=== PATIENT | male | born 1970 | race Caucasian/White ===

== ENCOUNTER → 2023-01-12 | Outpatient (CLI) | payer OTHER | END | disposition home or self-care (01) | LOC: RAH 10:38 | PROVIDERS: ATTEND Internal Medicine | DX: N62 Hypertrophy of breast (principal) | CPT/HCPCS: 77066 ==

== ENCOUNTER 2023-07-10 02:01 | Emergency (ER) | payer OTHER ==
[~2023-07-10] VITALS: Ht 182.9 cm; Wt 123.1 kg
[~2023-07-10 02:01] MED LIST: AEC81 PO; APIX5TAB PO; DRON400T7 PO; LISI10TA24 PO; PIND5 PO
[2023-07-10 02:29] LABS: BASOPHILS # (AUTO) 0.07 K/uL (0.00-0.20); BASOPHILS % (AUTO) 0.9 % (0.0-5.0); EOSINOPHILS # (AUTO) 0.22 K/uL (0.00-0.70); HEMATOCRIT 44.1 % (42-54); IMMATURE GRANULOCYTE ABSOLUTE 0.01 K/uL (0-1); LYMPHOCYTES % (AUTO) 27.2 % (21.0-51.0); MEAN CORPUSCULAR HEMOGLOBIN 29.4 pg (27.0-33.0); MEAN CORPUSCULAR HGB CONC 34.2 g/dL (32.0-36.0); MONOCYTES # (AUTO) 0.8 K/uL (0.1-1.0); MONOCYTES % (AUTO) 10.4 % (3.0-13.0); NEUTROPHILS # (AUTO) 4.3 K/uL (1.8-7.7); NEUTROPHILS % (AUTO) 58.4 % (40.0-77.0); PLATELET COUNT (AUTO) 197 K/uL (130-400); RED BLOOD CELL COUNT(AUTO) 5.13 MIL/uL (4.50-6.20); RED CELL DISTRIBUTION WIDTH 12.2 % (11.0-15.5); WHITE BLOOD COUNT (AUTO) 7.4 K/uL (4.8-10.8)
[2023-07-10 02:52] LABS: INR < 0.93 (0.85-1.15); PROTHROMBIN TIME 10.8 SEC (9.6-11.6)
[2023-07-10 02:54] LABS: CREATININE 1.3 mg/dL (0.5-1.5); POTASSIUM 3.3 mmol/L (3.5-5.1)
[2023-07-10 02:59] LABS: ALBUMIN 3.7 g/dL (3.5-5.0); BILIRUBIN,TOTAL 0.9 mg/dL (0.2-1.0); TOTAL PROTEIN, SERUM 6.9 g/dL (6.0-8.3)
[2023-07-10] MEDS ORDERED: HYDRALAZINE 20MG/ML VIAL IV ONE (03:00)
[2023-07-10] MEDS ORDERED: CLON0.1T PO (03:41)
[2023-07-10] MEDS ORDERED: CLONIDINE HCL 0.1 MG TABLET ONE (03:49)
[2023-07-10] MEDS ORDERED: CLONIDINE HCL 0.1 MG TABLET PO ONE (04:00)
[2023-07-10] MEDS ORDERED: ONDANSETRON 4MG INJ IVP ONE (05:00)
[2023-07-10 05:33] VITALS: BP 144/99; PULSE 70; RESP 16; O2SAT 97
== END 2023-07-10 05:42 | disposition home or self-care (01) ==
LOC: EDH 02:01
DX: I10 Essential (primary) hypertension (principal); I48.91 Unspecified atrial fibrillation; Z79.01 Long term (current) use of anticoagulants; Z79.82 Long term (current) use of aspirin; Z79.899 Other long term (current) drug therapy
CPT/HCPCS: 99285; 96374; 71045; 96375; 84484; 80053; 85025; 85610; 85730; 36415; 93005; J2405

== ENCOUNTER 2023-10-15 05:38 | Observation (INO) | payer OTHER ==
[2023-10-12 08:19] VITALS: BP 140/91; PULSE 57; RESP 16
[2023-10-12 08:45] LABS: BASOPHILS # (AUTO) 0.05 K/uL (0.00-0.20); BASOPHILS % (AUTO) 0.8 % (0.0-5.0); EOSINOPHILS # (AUTO) 0.15 K/uL (0.00-0.70); EOSINOPHILS % (AUTO) 2.4 % (0.0-8.0); IMMATURE GRANULOCYTE ABSOLUTE 0.01 K/uL (0-1); LYMPHOCYTES # (AUTO) 1.7 K/uL (1.0-4.8); LYMPHOCYTES % (AUTO) 28.1 % (21.0-51.0); MEAN CORPUSCULAR HEMOGLOBIN 30.1 pg (27.0-33.0); MEAN CORPUSCULAR HGB CONC 34.7 g/dL (32.0-36.0); MEAN CORPUSCULAR VOLUME 86.7 fL (79-99); MONOCYTES # (AUTO) 0.7 K/uL (0.1-1.0); MONOCYTES % (AUTO) 11.5 % (3.0-13.0); NEUTROPHILS # (AUTO) 3.5 K/uL (1.8-7.7); PLATELET COUNT (AUTO) 220 K/uL (130-400); RED BLOOD CELL COUNT(AUTO) 5.42 MIL/uL (4.50-6.20); WHITE BLOOD COUNT (AUTO) 6.2 K/uL (4.8-10.8)
[2023-10-12 08:57] LABS: INR 0.99 (0.85-1.15); PROTHROMBIN TIME 11.5 SEC (9.6-11.6)
[2023-10-12 08:58] LABS: PARTIAL THROMBOPLASTIN TIME 32.9 SEC (26.3-35.5)
[2023-10-12 09:00] LABS: CREATININE 1.3 mg/dL (0.5-1.5); POTASSIUM 3.4 mmol/L (3.5-5.1)
[~2023-10-15] VITALS: Ht 180.3 cm; Wt 124.7 kg
[2023-10-15] VITALS (23 sets, daily range): BP systolic 82–124; BP diastolic 57–77; PULSE 61–78; RESP 13–20; O2SAT 95–100
[~2023-10-15 05:38] MED LIST changes: -AEC81 PO; +AMLO-258 PO; -DRON400T7 PO; +HYDR-3421 PO; -LISI10TA24 PO; +METO25TA6 PO; -PIND5 PO; +PROP225T3 PO
[2023-10-15] MEDS ORDERED: 0.9%NACL 1000ML 1,000 ML IV ONE ×2 (06:10→17:00)
[2023-10-15] MEDS ORDERED: FENTANYL CITRATE PF 50 MCG/1 ML 5ML AMP IV ONE (07:05)
[2023-10-15] MEDS ORDERED: MIDAZOLAM HCL 1 MG/ML 2ML VIAL ONE ×2 (07:05→07:09)
[2023-10-15] MEDS ORDERED: MEPERIDINE-PF 25 MG/ML SYG ONE (07:09)
[2023-10-15] MEDS ORDERED: LIDOCAINE HCL 400MG/20ML VIAL ONE ×2 (07:09→07:42)
[2023-10-15] MEDS ORDERED: HEPARIN 10,000 UNIT/10ML (1,000 UNIT/ML) VIAL ONE ×2 (07:09→10:07)
[2023-10-15] MEDS ORDERED: ONDANSETRON 4MG INJ ONE ×2 (07:14→14:04)
[2023-10-15] MEDS ORDERED: LIDOCAINE PF 100MG/5ML (2%) SYRINGE 5ML ONE ×2 (07:14→08:25)
[2023-10-15] MEDS ORDERED: PROPOFOL 10 MG/ML 20ML VIAL IV ONE (07:15)
[2023-10-15] MEDS ORDERED: ROCURONIUM 10MG/1ML SYR 10 MG/ML ML ONE (07:15)
[2023-10-15] MEDS ORDERED: ATROPINE 1MG SYG IVP ONE (07:35)
[2023-10-15] MEDS ORDERED: EPINEPHRINE PF 1MG (1:1,000) 1 MG/ML AMP ONE (07:35)
[2023-10-15] MEDS ORDERED: PROPOFOL 1000 MG/100 ML 100 ML IV ONE (08:25)
[2023-10-15] MEDS ORDERED: EPHEDRINE SULFATE 50 MG/ML AMPULE ONE (09:22)
[2023-10-15] MEDS ORDERED: PHENYLEPHRINE HCL 10 MG/ML 1ML VIAL IV ONE ×2 (10:07)
[2023-10-15] MEDS ORDERED: ISOPROTERENOL HCL 0.2 MG/ML AMP/VIAL/BAG ONE (10:31)
[2023-10-15] MEDS ORDERED: PROTAMINE SULFATE 10 MG/ML 25ML VIAL IV ONE (12:52)
[2023-10-15] MEDS ORDERED: FENTANYL CITRATE PF 50 MCG/1 ML 2ML VIAL ONE ×2 (13:17→14:18)
[2023-10-15] MEDS ORDERED: GLYCOPYRROLATE 0.2 MG/ML 5 ML VIAL ONE (13:20)
[2023-10-15] MEDS ORDERED: NEOSTIGMINE 5MG/5ML SYR IV ONE (13:20)
[2023-10-15] MEDS ORDERED: HYDROXYZINE 25 MG TABLET PO PRN (14:00)
[2023-10-15] MEDS ORDERED: PANTOPRAZOLE 40 MG TAB DR PO SCH (15:00)
[2023-10-15 16:51] LABS: ABG BASE EXCESS -4.3 mmol/L (-2.0-3.0); ABG HCO3 21.3 mmol/L (21.0-28.0); ABG OXYGEN SATURATION 92.5 % (95.0-99.0); ABG PCO2 41 mmHg (35-48); ABG PH 7.335 (7.35-7.450); DEVICE COMMENT RR; PO2, ARTERIAL BG 67.8 mmHg (83.0-108.0); VENT MODE, BG NC (ROOM AIR)
[2023-10-15] MEDS: SUCRALFATE 1 GM TABLET PO SCH ×2 (16:54→20:06)
[2023-10-15] MEDS: METOPROLOL TARTRATE 25 MG TAB PO SCH (18:21)
[2023-10-15] MEDS: APIXABAN 5 MG TABLET PO SCH (20:07)
[2023-10-15] MEDS ORDERED: AMLODIPINE 5 MG TAB PO SCH (21:00)
[2023-10-16 00:20] VITALS: BP 128/82; PULSE 80; RESP 20
[2023-10-16] MEDS: SUCRALFATE 1 GM TABLET PO SCH ×3 (02:17→13:57)
[2023-10-16 08:18] VITALS: BP 134/91; PULSE 86; RESP 17
[2023-10-16] MEDS: METOPROLOL TARTRATE 25 MG TAB PO SCH (08:29)
[2023-10-16] MEDS: APIXABAN 5 MG TABLET PO SCH (08:29)
[2023-10-16] MEDS ORDERED: PANTOPRAZOLE 40 MG TAB DR PO SCH (09:00)
[2023-10-16] MEDS: ACETAMINOPHEN 500 MG TABLET PO PRN ×2 (09:05→13:58)
[2023-10-16] MEDS ORDERED: COLC0.6T73 PO (09:27)
[2023-10-16] MEDS ORDERED: PANT40TA55 PO (09:27)
[2023-10-16] MEDS ORDERED: SUCR1TAB2 PO (09:27)
[2023-10-16] MEDS ORDERED: COLCHICINE 0.6 MG TABLET PO SCH (10:00)
[2023-10-16 11:44] VITALS: BP 116/78; PULSE 72; RESP 18
== END 2023-10-16 15:15 | disposition home or self-care (01) ==
LOC: DAH 05:38 → DAHIP 05:39 → 2DH 15:15
PROVIDERS: ADMIT Internal Medicine Cardiovascular Disease; ATTEND Internal Medicine Cardiovascular Disease
DX: I48.0 Paroxysmal atrial fibrillation (principal); I47.19 Other supraventricular tachycardia; E87.29 Other acidosis; E66.9 Obesity, unspecified; Z79.899 Other long term (current) drug therapy
CPT/HCPCS: 80048; 85025; 85610; 85730; 36415; 71045 ×2; 93005 ×2; 93623; 93656; 93657; 82803; 85347 ×8; 82948; 93308; 36600; A4344; C1894 ×5; C1732 ×2; C1730 ×2; C1731; A4649 ×2; C1766; G0378 ×25; J3010 ×3; J3490 ×5; J2710; J7030; J2720; J2001 ×2; J0461; J1644 ×3; J2250; J2704 ×2; J2405 ×2; J2371 ×2; A4215; A4223 ×3; A4222; A4221; A4663; A4216; J0171; J2175